=== PATIENT | male | born 1970 | race African-American/Black ===

== ENCOUNTER → 2021-04-12 | Outpatient (CLI) | payer BC ==
[~2021-04-12] MED LIST: LIDOCAINE VISC 2% SOLN 15 ML UDC ONE
== END ==
LOC: WCC 13:46
PROVIDERS: ATTEND Family Medicine Adult Medicine
DX: I70.239 Atherosclerosis of native arteries of right leg with ulceration of unspecified site (principal); L97.919 Non-pressure chronic ulcer of unspecified part of right lower leg with unspecified severity; R60.0 Localized edema; M10.9 Gout, unspecified; N18.9 Chronic kidney disease, unspecified; I10 Essential (primary) hypertension; I50.9 Heart failure, unspecified; I63.9 Cerebral infarction, unspecified
CPT/HCPCS: 87071; 87075; 87205